=== PATIENT | male | born 1960 | race Caucasian/White ===

== ENCOUNTER → 2019-12-05 | Outpatient (CLI) | payer BC, SELFPAY ==
[2019-12-05 15:20] VITALS: BMI 28.1
[2019-12-05 16:56] LABS: Absolute Lymphocyte Count 1.98 X10^3/uL (0.83-4.51); Absolute Neutrophil Count 3.8 X10^3/uL (2.0-7.7); Basophil# 0.05 X10^3/uL; Basophil% 0.7 % (0-1); Eosinophil# 0.21 X10^3/uL; Eosinophils% 3.1 % (0-5); Hemoglobin 13.6 g/dL (13.0-16.5); Lymphocyte # 1.98 X10^3/ul (4.0); Lymphocyte % 29.6 % (19-41); Mean Corp Hgb Conc 33.2 g/dL (32-36); Mean Corpuscular Hgb 31.4 pg (27.0-32.0); Mean Corpuscular Volume 94.7 fL (80-94); Mean Platelet Vol. 9.4 fl (6.2-12.0); Monocyte# 0.58 X10^3/uL; Monocyte% 8.7 % (0-10); NRBC Flagged by Analyzer 0 % (0-5); Neutrophil # 3.83 X10^3/uL (2.7-7.7); Neutrophil % 57.5 % (47-70); Platelet Count 331 K/mm3 (150-450); RBC Distribution Width CV 12.1 % (11.6-14.6); RBC Distribution Width SD 42.8 fl (35.1-43.9); Red Blood Count 4.33 M/mm3 (4.6-6.2); White Blood Count 6.7 K/mm3 (4.4-11.0)
[2019-12-05 17:13] LABS: ALB/GLOB Ratio 1.2 RATIO (0.9-2.4); AST(SGOT) 20 U/L (15-37); Alanine Aminotransfer ALT/SGPT 28 U/L (16-61); Albumin, Serum 4.2 g/dL (3.2-5.0); Alkaline Phosphatase 76 U/L (45-117); Anion Gap 6 (5-15); BUN 21 mg/dL (7-18); BUN/Creat Ratio 18.9 RATIO (10-20); Calcium,Total 9.3 mg/dL (8.5-10.1); Chloride 107 mmol/L (98-107); Cholesterol 222 mg/dL (200); Creatinine, Serum 1.11 mg/dL (0.70-1.30); EST Glomerular Filtration Rate 72 mL/min (>60); Est Glom Filt Rate - Afr Amer 88 mL/min (>60); Globulin 3.4 g/dL (2.2-4.2); Glucose 93 mg/dL (74-106); High Density Lipoprotein 57 mg/dL; PSA,Total - Annual Screen 1.22 ng/mL (0.00-4.00); Protein, Total 7.6 g/dL (6.4-8.2); Sodium Level 141 mmol/L (136-145); Triglycerides 78 mg/dL; Very Low Density Lipoprotein 16 mg/dL (5-40)
== END | disposition home or self-care (01) ==
LOC: BIMLAB 15:54
PROVIDERS: Visit Provider Internal Medicine
DX: Z00.00 Encounter for general adult medical examination without abnormal findings (principal); Z12.5 Encounter for screening for malignant neoplasm of prostate
CPT/HCPCS: 36415; 80053; 80061; 84153; 85025; G0103

== ENCOUNTER → 2022-11-09 | Outpatient (CLI) | payer OTHER, SELFPAY ==
[2022-11-09 17:04] LABS: Absolute Lymphocyte Count 1.79 X10^3/uL (0.83-4.51); Absolute Neutrophil Count 4.1 X10^3/uL (2.0-7.7); Basophil# 0.06 X10^3/uL; Basophil% 0.9 % (0-1); Eosinophil# 0.18 X10^3/uL; Eosinophils% 2.7 % (0-5); Hematocrit 39.2 % (40-54); Hemoglobin 13.1 g/dL (13.0-16.5); Lymphocyte # 1.79 X10^3/ul (0.83-4.51); Lymphocyte % 26.9 % (19-41); Mean Corp Hgb Conc 33.4 g/dL (32-36); Mean Corpuscular Volume 95.8 fL (80-94); Mean Platelet Vol. 9.8 fl (6.2-12.0); Monocyte% 7.5 % (0-10); NRBC Flagged by Analyzer 0 % (0-5); Neutrophil # 4.11 X10^3/uL (2.7-7.7); Neutrophil % 61.7 % (47-70); Platelet Count 363 K/mm3 (150-450); RBC Distribution Width SD 42.3 fl (35.1-43.9); Red Blood Count 4.09 M/mm3 (4.6-6.2); White Blood Count 6.7 K/mm3 (4.4-11.0)
[2022-11-09 17:25] LABS: ALB/GLOB Ratio 1.3 RATIO (0.9-2.4); AST(SGOT) 24 U/L (15-37); Alanine Aminotransfer ALT/SGPT 32 U/L (16-61); Albumin, Serum 4.2 g/dL (3.2-5.0); Alkaline Phosphatase 64 U/L (45-117); Anion Gap 8 (5-15); BUN 22 mg/dL (7-18); Calcium,Total 9.2 mg/dL (8.5-10.1); Chloride 107 mmol/L (98-107); Cholesterol 209 mg/dL (200); EST Glomerular Filtration Rate 81 mL/min (>60); Est Glom Filt Rate - Afr Amer 98 mL/min (>60); Globulin 3.3 g/dL (2.2-4.2); Glucose 97 mg/dL (74-106); High Density Lipoprotein 64 mg/dL; PSA,Total - Annual Screen 1.24 ng/mL (0.00-4.00); Potassium 3.9 mmol/L (3.5-5.1); Protein, Total 7.5 g/dL (6.4-8.2); Sodium Level 141 mmol/L (136-145); Triglycerides 110 mg/dL; Very Low Density Lipoprotein 22 mg/dL (5-40)
== END | disposition home or self-care (01) ==
LOC: BIMLAB 15:27
PROVIDERS: PCP Internal Medicine; Referring Provider Internal Medicine; Visit Provider Internal Medicine
DX: Z00.00 Encounter for general adult medical examination without abnormal findings (principal); Z12.5 Encounter for screening for malignant neoplasm of prostate
CPT/HCPCS: 36415; 80053; 80061; 84153; 85025; G0103

== ENCOUNTER → 2025-08-28 | Outpatient (CLI) | payer OTHER, SELFPAY ==
--- OUTSIDE RECORDS SUMMARY | 2025-08-28 09:01 | XMS RPT_ITS | CCD ---
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 Grazyna Ceron Primary Care Provider [phone] Dr. Grazyna Ceron Attending Provider [phone] Dr. Grazyna Ceron Referring Provider [phone] Jose Miguel Michaels Attending Unavailable Grazyna Ceron Primary Care Unavailable Grazyna Ceron Referring Unavailable Jose Miguel Michaels Attending Unavailable Grazyna Ceron Primary Care Unavailable Grazyna Ceron Referring Unavailable Grazyna Ceron Primary Care Unavailable Philip Grey Attending Unavailable Medications Completed/Discontinued Medications Medication Drug Class(es) Dates Sig (Normalized) Sig (Original) cyclobenzaprine hydrochloride 10 mg oral tablet (1 source) Muscle Relaxant Start: 05-19-2021 End: 11-08-2022 take 10 mg by mouth three times daily Cyclobenzaprine Discontinued 10 MG PO THREE TIMES A DAY May 18, 2021 11:00pm November 08, 2022 4:36pm predniSONE 10 mg oral tablet (2 sources) Start: 05-19-2021 End: 11-08-2022 take 4 tablets by mouth once daily, then take 3 tablets by mouth once daily, then take 2 tablets by mouth once daily, then take 1 tablet by mouth once daily Prednisone Discontinued 10 MG PO DAILY May 18, 2021 11:00pm November 08, 2022 4:36pm 4 tablets daily for 3 days, then 3 tablets daily for 3 days, then 2 tablets daily for 3 days, then 1 tablet daily for 3 days Start: 01-06-2018 End: 01-13-2018 take 1 dose by mouth once daily at mealtime Prednisone Discontinued 20 MG PO .COMPLEX 18 7 January 05, 2018 11:00pm January 12, 2018 11:08pm 20 mg PO: 3 pills daily x 3 days, 2 pills daily x 3 days, then 1 pill daily x 3 days; administer with food or milk Problems Problem Classification Problem Date Documented Da te Episodic/Chronic Other injuries and conditions due to external causes (1 source) Unspecified injury of shoulder and upper arm, unspecified arm, initial encounter; Translations: [Unspecified injury of shoulder and upper arm, unspecified arm, initial encounter] Onset: 11-27-2024 Episodic Sprains and strains (1 source) Lower back injury; Translations: [Strain of muscle, fascia and tendon of lower back, initial encounter] 05-19-2021 Episodic Results Test Name Value Interpretation Reference Range Facility [facility] 11-27-2024 Clavicle [facility] [address] [place], [place] [id number] Clavicle MR#: [id number] Acct: [id number] Name: SAAD BOWDEN Rep #: [id number] : 1960 M 64 From: Mckay Shafer i DO PCP: Dr. Grazyna Ceron MD Status: DEP AMB Study: Clavicle Date of Exam: 11/27/24 Exam# [id number] Ordering Dr: Jose Miguel Rivera PROCEDURE: Right clavicle radiographs, two views 11/27/2024 REASON FOR EXAM: RECENT FALL, PT LIFTED SOMETHING AND FELT A POP AND PAIN TECHNIQUE: 1 view(s) of each clavicle FINDINGS: Two views of the right clavicle were obtained. Included right lung clear. No acute fracture or dislocation of the right clavicle. Mild degenerative change of the acromioclavicular joint. No AC joint separation. RAD/Clavicle IMPRESSION: No acute bony abnormality of the right clavicle. Mild degenerative change of the right acromioclavicular joint. Reading Location: [facility] CC: JULAI Lazaro; Dr. Grazyna Ceron MD Blueprint Tracer: Signed Normal [facility] Shoulder min 2 Viewson 11-27 Shoulder min 2 Views [facility] [address] [place] [address] Shoulder min 2 Views MR#: [id number] Acct: [id number] Name: SAAD BOWDEN Rep #: [id number] : 1960 M 64 From: Mckay Shafer i, DO PCP: Dr. Grazyna Ceron MD Status: DEP AMB Study: Shoulder min 2 Views Date of Exam: 11/27/24 Exam# [id number] Ordering Dr: Jose Miguel Rivera PROCEDURE: Right shoulder radiographs, four views 11/27/2024 REASON FOR EXAM: RECENT FALL, PT LIFTED SOMETHING AND FELT A POP AND PAIN TECHNIQUE: Four views of the right shoulder were obtained. COMPARISON: None available FINDINGS: Four views of the right shoulder were obtained. No acute fracture or dislocation of the right shoulder. Mild degenerative change of the acromioclavicular and glenohumeral joints. The subacromial space is maintained. A few tiny calcifications or osseous densities projecting near the superior margin of the glenoid on image 2 are of uncertain etiology. RAD/Shoulder min 2 Views IMPRESSION: No definite acute bony abnormality of the right shoulder. Mild degenerative change of the acromioclavicular and glenohumeral joints. A few tiny calcific or osseous densities projecting near the superior margin of the glenoid on image 2 are nonspecific. If there is persistent pain or clinical concern, short-term follow-up MRI evaluation may be considered. Reading Location: [facility] CC: JULIA Lazaro; Dr. Grazyna Ceron MD Blueprint Tracer: Signed Normal [facility] Urgent Care Visit Reporton 0 11-27-2024 Urgent Care Visit Report [facility] [address], [address] [place] [address] OFFICE VISIT Date of Service: 11/27/24 MR#: [id number] Acct: [id number] Name: SAAD BOWDEN Rep #: [id number] : 1960 Provider: JULIA Lazaro Age/Sex: 64/M Location: [facility] Status: Signed Intake Vital Signs 11/21/24 15:36 11/27/24 06:24 11/27/24 07:53 Height 5 ft 10 in 5 ft 10 in Weight: 211 lb 2 oz BMI 30.2 BP 138/88 H 172/94 H Blood Pressure Location Lt brachial Position Sitting Sitting Respiration 16 Pulse 84 64 Pulse Source NIBP Temp 98.2 F 98.1 F Temp Source Oral Oral Pulse Oximetry (%) 97 97 Oxygen Delivery Method room air room air Intake Visit Reasons: R SHOULDER PAIN Chief Complaint: right shoulder pain 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 this morning felt hard pop in right shoulder when lifting garbage bag up. pain persists and radiates into right elbow and hand with tingling. denies additional injuries. discussed elevated BP, no history but pt admits this has been creeping up recently. advised to recheck in the next 24-48 hours, if continued elevation should see PCP for further eval. pt agrees. [facility] Medical History (Updated 11/27/24 @ 08:11 by Jose Miguel DUMONT, [place]) Preventative health care Acute lumbar myofascial strain Surgical History S/P appendectomy Family History Other Breast cancer Heart disease Hypertension Social History Smoking Status: Former smoker Smokeless tobacco user: chewing tobacco alcohol intake: current frequency: 5-6 times per week HPI HPI Chief Complaint: right shoulder pain Details: SAAD BOWDEN, is a 64 M who presents to the office today for complaint of right shoulder pain. Patient states he was trying to picking tech the trash bag out of the trash this morning and felt a pop in his right shoulder. Patient denies numbness or loss of range of motion however does have some tingling. Patient states no previous injuries to the same. No other associated symptoms or alleviating/aggravati ng factors. ROS Const Constitutional: Positive for other (As above) Exam Const General: cooperative and healthy appearing Resp Effort Inspection: normal respiratory effort Cardio Palpation: normal PMI Neuro General: patient alert Extrem General: full ROM and capillary refill normal Other: Patient palpation over the right anterior shoulder/insertion point for the pectoral muscle. Psych Appearance: grossly normal Mental Status: mental status grossly normal Coding Level of Care Code Off vis,est,level 4 Diagnoses Strain of right pectoralis muscle S29.011A Assessment and Plan Assessment and Plan (1) Strain of right pectoralis muscle: Status: Acute Orders: Orders Shoulder min 2 Views Today S49.90XA - Unspecified injury of shoulder and upper arm, unspecified arm, initial encounter Clavicle Today S49.90XA - Unspecified injury of shoulder and upper arm, unspecified arm, initial encounter Plan Three-view right shoulder x-ray and 2 view clavicle x-ray read by myself finding no acute osseous abnormalities, awaiting radiology interpretation at time of patient discharge. Patient advised of rest, ice alternating with heat and use of ibuprofen or Tylenol as needed for pain unless contraindicated. Patient also given at home stretching exercises to complete. Patient advised to follow-up with orthopedics in 10 to 14 days if no better or sooner if worse. Patient verbalized understanding and agreement with all the above. Clinical Quality Measures Falls Risk Screening/Assistive Devices Have you fallen in the past year?: Yes 11/27/24 0812 Date Jose Miguel Quinteros Signature: Date (if applicable) CC: Normal [facility] Urgent Care Visit Reporton 0 11-21-2024 Urgent Care Visit Report [facility] [address], [address] [place] [address] OFFICE VISIT Date of Service: 11/21/24 MR#: [id number] Acct: [id number] Name: SAAD BOWDEN Rep #: [id number] : 1960 Provider: JULIA Lazaro Age/Sex: 64/M Location: [facility] Status: Signed Intake Vital Signs 11/08/22 16:37 11/21/24 15:36 Height 5 ft 9 in 5 ft 10 in Weight: 211 lb 2 oz BMI 30.2 BP 138/88 H Position Sitting Pulse 84 Temp 98.2 F Temp Source Oral Pulse Oximetry (%) 97 Oxygen Delivery Method room air Intake Visit Reasons: TWO TICKS ON BACK Accompanied by: Self Allergies No Known Allergies Allergy (Unverified 11/21/24 15:35) Medications ???Medication ???Instructions ???Recorded ???Confirmed ???Type doxycycline monohydrate 100 mg 200 mg (2 x 100 mg) PO ONCE 1 day 11/21/24 11/21/24 Rx tablet #2 tabs Nurse's Note: Patient has two tick bites on his back. Patient found them this morning. Patient thinks it could of happen yesterday. [facility] Medical History (Updated 11/21/24 @ 17:57 by JULIA Ba) Preventative health care Acute lumbar myofascial strain Surgical History S/P appendectomy Family History Other Breast cancer Heart disease Hypertension Social History Smoking Status: Former smoker Smokeless tobacco user: chewing tobacco alcohol intake: current frequency: 5-6 times per week HPI HPI Details: SAAD BOWDEN, is a 64 M who presents to the office today for complaint of 2 tics on his back. Patient states that he likely got the text on his back last night when he was working in the garden and then noticed some this morning however is not 100% sure. He does state that he removed the ticks however there is still small piece in each of the sites. No other associated symptoms or alleviating/aggravati ng factors. ROS Const Constitutional: Positive for other (As above) Exam Const General: cooperative and healthy appearing Resp Effort Inspection: normal respiratory effort Cardio Rate: regular rate Rhythm: regular rhythm Skin Other: 2 small circular lesions right upper and mid back with minimal erythema. No streaking or extending erythema. 2 small black foreign bodies were removed one from each site. Neuro General: patient alert Psych Appearance: grossly normal Mental Status: mental status grossly normal Coding Level of Care Code Off vis,est,level 3 Diagnoses Tick bite of back S30.860A; W57.XXXA Assessment and Plan Assessment and Plan (1) Tick bite of back: Status: Acute Medications: New doxycycline monohydrate 200 mg (2 x 100 mg) PO ONCE 1 day 2 tabs 0RF Plan Doxycycline prophylaxis as prescribed today. Encouraged to get plenty of rest, drink lots of clear liquids, and use Tylenol or Ibuprofen (unless contraindicated) for comfort. Patient also educated on other symptomatic management techniques. To be seen in 7-10 days if no improvement; sooner if worsening of symptoms. Patient advised of potential red flags and when appropriate to report to the ED. Patient verbalized understanding and agreement with all the above. 11/21/24 1757 Date Jose Miguel Quinteros Signature: Date (if applicable) CC: Normal [facility] Absolute lymphocyte countOrd ered By: Dr. Ceron on 11-09-2022 Lymphocytes Auto (Unsp spec) [#/Vol] 1.79 10*3/uL 0.83-4.51 [facility] Basophil percentageOrdered B y: Dr. Ceron on 11-09-2022 Basophils/100 WBC (Bld) 0.9 % 0-1 [facility] Bilirubin [Mass/Vol] 0.50 mg/dL 0.20-1.00 [facility] Comment on above: For patients on eltr ombopag therapy, use of Dimension [place] TBIL is not recommended. Chloride [Moles/Vol] 107 mmol/L 98-107 [facility] Cholesterol [Mass/Vol] 209 mg/dL <200 [facility] Comment on above: <200 mg/dL Desirable 200-240 mg/dL Borderline >240 mg/dL High Risk Eosinophils/100 WBC (Bld) 2.7 % 0-5 [facility] Glucose [Mass/Vol] 97 mg/dL 74-106 [facility] Neutrophils (Bld) [#/Vol] 4.1 10*3/uL 2.0-7.7 [facility] Neutrophils/100 WBC (Bld) 61.7 % 47-70 [facility] Potassium [Moles/Vol] 3.9 mmol/L 3.5-5.1 [facility] Protein [Mass/Vol] 7.5 g/dL 6.4-8.2 [facility] Sodium [Moles/Vol] 141 mmol/L 136-145 [facility] Triglyceride [Mass/Vol] 110 mg/dL <199 [facility] Comment on above: The drugs N-Acetylcy steine and Metamizole may falsely depress this assay.Serum Triglycerides Reference Interval Normal <150 mg/dL Borderline high 150 - 199 mg/dL High 200 - 499 mg/dL Very High > or = 500 mg/dL WBC (Bld) [#/Vol] 6.7 10*3/uL 4.4-11.0 [facility] Blood erythrocytes count (nu mber/volume)Ordered By: Dr. Ceron on 11-09-2022 RBC (Bld) [#/Vol] 4.09 10*6/uL 4.6-6.2 [facility] Blood hemoglobin measurement (mass/volume)Ordered By: Dr. Ceron on 11-09-2022 Hemoglobin (Bld) [Mass/Vol] 13.1 g/dL 13.0-16.5 [facility] Blood lymphocytes/100 leukoc ytesOrdered By: Dr. Ceron on 11-09-2022 Lymphocytes/100 WBC (Bld) 26.9 % 19-41 [facility] Blood monocytes/100 leukocyt esOrdered By: Dr. Ceron on 11-09-2022 Monocytes/100 WBC (Bld) 7.5 % 0-10 [facility] Blood platelet mean volumeOr dered By: Dr. Ceron on 11-09-2022 Platelet mean volume (Bld) [Entitic vol] 9.8 fL 6.2-12.0 [facility] Determination of erythrocyte mean corpuscular volume (MCV)Ordered By: Dr. Ceron on 11-09-2022 MCV (RBC) [Entitic vol] 95.8 fL 80-94 [facility] Hematocrit Auto (Bld) [Volum e fraction]Ordered By: Dr. Ceron on 11-09-2022 Hematocrit (Bld) [Volume fraction] 39.2 % 40-54 [facility] Laboratory - Chemistry and C hemistry - challengeOrdered By: Dr. Ceron on 11-09-2022 ALP [Catalytic activity/Vol] 64 U/L 45-117 [facility] ALT [Catalytic activity/Vol] 32 U/L 16-61 [facility] CO2 [Moles/Vol] 26.0 mmol/L 21.0-32.0 [facility] Globulin (S) [Mass/Vol] 3.3 g/dL 2.2-4.2 [facility] Urea nitrogen/Creatinine [Mass ratio] 22.0 mg/mg 10-20 [facility] Laboratory - Hematology and Cell countsOrdered By: Dr. Ceron on 11-09-2022 Erythrocyte distribution width (RBC) [Entitic vol] 42.3 fL 35.1-43.9 [facility] Erythrocyte distribution width (RBC) [Ratio] 12.0 % 11.6-14.6 [facility] Immature granulocytes/100 WBC (Bld) 0.300 % 0.0-0.9 [facility] Comment on above: IG% - Immature Granu locytes (promyelocytes, myelocytes and metamyelocytes) > 1% indicates that a LEFT SHIFT is Present. MCH (RBC) [Entitic mass] 32.0 pg 27.0-32.0 [facility] Nucleated RBC/100 WBC (Bld) [Ratio] 0 % 0-5 [facility] MCHC Auto (RBC) [Mass/Vol]Or dered By: Dr. Ceron on 11-09-2022 MCHC (RBC) [Mass/Vol] 33.4 g/dL 32-36 [facility] No Panel InformationOrdered By: Dr. Ceron on 11-09-2022 Estimated GFR (MDRD) Amer 98 mL/min >60 [facility] Comment on above: GFR Calc Estimated GFR (MDRD) Non-Af Amer 81 mL/min >60 [facility] Comment on above: Non- GFR Calc Prostate Specific Antigen Screen 1.24 ng/mL 0.00-4.00 [facility] Comment on above: This test was perfor med using the TPSA assay method for the[employer] chemistry system. Values obtained with differentassay methods cannot be used interchangably.When changing PSA assays in the course of monitoring apatient, additional sequential testing should be carriedout to confirm baseline values. Platelets bldOrdered By: Dr. Ceron on 11-09-2022 Platelets (Bld) [#/Vol] 363 10*3/uL 150-450 [facility] Serum or plasma albumin shyla urement (mass/volume)Ordered By: Dr. Ceron on 11-09-2022 Albumin [Mass/Vol] 4.2 g/dL 3.2-5.0 [facility] Serum or plasma albumin/glob ulin mass ratioOrdered By: Dr. Ceron on 11-09-2022 Albumin/Globulin [Mass ratio] 1.3 {ratio} 0.9-2.4 [facility] Serum or plasma calcium shyla urement (mass/volume)Ordered By: Dr. Ceron on 11-09-2022 Calcium [Mass/Vol] 9.2 mg/dL 8.5-10.1 [facility] Serum or plasma cholesterol in HDL measurement (mass/volume)Ordered By: Dr. Ceron on 11-09-2022 Cholesterol in HDL [Mass/Vol] 64 mg/dL >40 [facility] Comment on above: The drugs N-Acetylcy steine and Metamizole may falsely depress this assay. Reference Range HDL <40 mg/dL Low HDL Cholesterol HDL >or= 60 mg/dL High HDL Cholesterol Serum or plasma cholesterol in VLDL measurement (mass/volume)Ordered By: Dr. Ceron on 11-09-2022 Cholesterol in VLDL [Mass/Vol] 22 mg/dL 5-40 [facility] Serum or plasma creatinine m easurement (mass/volume)Ordered By: Dr. Ceron on 11-09-2022 Creatinine [Mass/Vol] 1.00 mg/dL 0.70-1.30 [facility] Comment on above: The validity of the calculated GFR & GFRAA in patients over 70 years has not been determined. Clinical correlation is essential. Serum or plasma low density lipoprotein (LDL) cholesterol measurement (mass/volume)Ordered By: Dr. Ceron on 11-09-2022 Cholesterol in LDL [Mass/Vol] 123 mg/dL 0-130 [facility] Serum or plasma urea nitroge n measurement (mass/volume)Ordered By: Dr. Ceron on 11-09-2022 Urea nitrogen [Mass/Vol] 22 mg/dL 7-18 [facility] Thin prep Papanicolaou smear with manual screeningOrdered By: Dr. Ceron on 11-09-2022 Thin prep Papanicolaou smear with manual screening 24 U/L 15-37 [facility] Thin prep Papanicolaou smear with manual screening 8 5-15 [facility] Vital Signs Date Time Vital Sign Value Performing Clinician Faci lity 11-08-2022 16:37-0500 Body height 175.[address] Grazyna Ceron Work Phone: [facility] 11-08-2022 16:37-0500 Body mass index (BMI) [Ratio] 28.9 kg/m2 Dr. Grazyna Ceron Work Phone: [facility] 11-08-2022 16:37-0500 Body temperature 98.3 [degF] Dr. Grazyna Ceron Work Phone: [facility] 11-08-2022 16:37-0500 Body weight 88.[address] Grazyna Ceron Work Phone: [facility] 11-08-2022 16:37-0500 Diastolic blood pressure 88 mm[Hg] Dr. Grazyna Ceron Work Phone: [facility] 11-08-2022 16:37-0500 Heart rate 65 /min Dr. Grazyna Ceron Work Phone: [facility] 11-08-2022 16:37-0500 Respiratory rate 16 /min Dr. Grazyna Ceron Work Phone: [facility] 11-08-2022 16:37-0500 SaO2% (BldA) [Mass fraction] 96 % Dr. Grazyna Ceron Work Phone: [facility] 11-08-2022 16:37-0500 Systolic blood pressure 142 mm[Hg] Dr. Grazyna Ceron Work Phone: [facility] Encounters Encounter Date Encounter Type Care Provider Facility Start: 11-27-2024 End: 11-27-2024 ambulatory Jose Miguel DUMONT Facility:[facility] Start: 11-21-2024 End: 11-21-2024 ambulatory Jose Miguel DUMONT Facility:[facility] Start: 11-09-2022 End: 11-09-[address] Grazyna Ceron Work Phone: [facility] Work Phone: Start: 11-09-2022 End: 11-09-[address] Grazyna Ceron Work Phone: [facility] [place] Start: 11-08-[address] Sunil Ceron Work Phone: [facility] Start: 11-08-2022 End: 11-08-2022 Encounter for general adult medical examination without abnormal findings Dr. Grazyna Ceron Work Phone: [facility] Start: 11-08-2022 End: 11-08-[address] Grazyna Ceron Work Phone: [facility] Plan of Treatment Date Care Activity Detail Author Start: 11-08-2022 Patient referral [facility] Work Phone: Patient referral [facility] Work Phone: Payers Date Payer Category Payer Self-pay [id number] 2024 Unknown [id number] Unknown [facility] [id number] Unknown [facility] [id number] Unknown [id number] [id number] Unknown [id number] Unknown [id number] Social History Date Type Detail Facility Start: 11-08-2022 Tobacco smoking stat [facility] Unknown if ever smoked [facility] Start: 1960 Sex Assigned At Male [facility] Evaluation note Note Date & Type Note Facility Evaluation note Diagnosis Onset Date Preventative health care acu te [facility] Work Phone: Chief Complaint and Reason for Visit Chief Complaint Annual- Biometric He alth Screen Reason for Visit Preventative health care Family History No Family History Records Found Relationship Condition Age at Onset Recorded Date/T bri Not Specified Cardiac disease Unknown Malignant neoplasm of breast Unknown Hypertension Unknown Summary Purpose Advance Directives No Advanced Directives Records Found Additional Source Comments Care Teams (unrecognized sec tion and content) Team Status: Active Member Role Status Dates Ximena Carpenter MD Family Provider Active Dr. Grazyna Ceron MD Primary Care Provider Active Team Status: Inactive Member Role Status Dates Dr. Grazyna Ceron MD Primary Care P yung, Attending Provider, Referring Provider Active Goals (unrecognized section and content) Goals may be documented in a n alternate section (unrecognized sect ion and content) No Status Records Found INFORMATION SOURCE (unrecogn ized section and content) DATE CREATED AUTHOR 11/29/2024 [facility] FOR RECORDS PERTAINING TO PATIENTS WHO ARE OR HAVE BEEN ENROLLED IN A CHEMICAL DEPENDENCY/SUBSTANCEABUSE PROGRAM, SOME INFORMATION MAY BE OMITTED. This clinical summary was aggregated from multiple sources. Caution should be exercised in using it in the provision of clinical care. This summary normalizes information from multiple sources, and as a consequence, information in this document may materially change the coding, format and clinical context of patient data. In addition, data may be omitted in some cases. CLINICAL DECISIONS SHOULD BE BASED ON THE PRIMARY CLINICAL RECORDS. [facility] [employer] [facility]. provides no warranty or guarantee of the accuracy or completeness of information in this document.
[2025-08-28 09:05] LABS: Hematocrit 42.6 % (40-54); Hemoglobin 14.4 g/dL (13.0-16.5); Immature Granulocytes Count 0.040 X10^3/uL (0.0-0.0); Mean Corp Hgb Conc 33.8 g/dL (32-36); Mean Corpuscular Volume 95.9 fL (80-94); Mean Platelet Vol. 9.4 fl (6.2-12.0); NRBC Flagged by Analyzer 0 % (0-5); Platelet Count 360 K/mm3 (150-450); RBC Distribution Width CV 11.9 % (11.6-14.6); RBC Distribution Width SD 41.8 fl (35.1-43.9); Red Blood Count 4.44 M/mm3 (4.6-6.2); White Blood Count 6.6 K/mm3 (4.4-11.0)
[2025-08-28 09:41] LABS: AST(SGOT) 24 U/L (<=37); Alanine Aminotransfer ALT/SGPT 21 U/L (<=46); Albumin, Serum 4.5 g/dL (3.4-4.8); Alkaline Phosphatase 68 U/L (40-129); Anion Gap 11 (5-15); BUN 20 mg/dL (4-19); BUN/Creat Ratio 19.3 RATIO (10-20); Calcium,Total 9.3 mg/dL (7.6-11.0); Carbon Dioxide 23.9 mmol/L (21.0-32.0); Chloride 103 mmol/L (98-108); Cholesterol 197 mg/dL (<=200); Globulin 2.7 g/dL (2.2-4.2); Glucose 104 mg/dL (70-99); Low Density Lipoprotein Calc. 130 mg/dL; PSA,Total - Annual Screen 2.66 ng/mL (0.02-4.00); Potassium 4.5 mmol/L (3.3-5.1); Triglycerides 84 mg/dL; Very Low Density Lipoprotein 17 mg/dL (5-40); cholesterol:hdl ratio screen 3.84
[2025-09-05 13:07] LABS: Testosterone, % Free 1.66 % (1.50-4.20); Testosterone, Free 12.22 ng/dL (5.00-21.00)
== END | disposition home or self-care (01) ==
LOC: LAB 08:39
PROVIDERS: PCP Internal Medicine; Referring Provider Internal Medicine; Visit Provider Internal Medicine
DX: Z00.00 Encounter for general adult medical examination without abnormal findings (principal); R73.9 Hyperglycemia, unspecified; N52.9 Male erectile dysfunction, unspecified
CPT/HCPCS: 36415; 80053; 80061; 83036; 84153; 84402; 84403; 85025; G0103